=== PATIENT | male | born 1995 | race Two or more races ===

== ENCOUNTER 2020-12-09 04:34 | Emergency (ER) | payer OTHER ==
[~2020-12-09] VITALS: Ht 182.9 cm; Wt 90.9 kg
[2020-12-09 05:48] VITALS: BP 128/78
[2020-12-09] MEDS: PERTUSS(ACELL),DIPH,TET VAC/PF 0.5 ML SYRINGE IM. ONE ×2 (06:14→08:50)
== END 2020-12-09 10:43 | disposition home or self-care (01) ==
LOC: EMS 04:34
DX: S41.011A Laceration without foreign body of right shoulder, initial encounter (principal); W22.8XXA Striking against or struck by other objects, initial encounter; Y93.89 Activity, other specified; Y92.89 Other specified places as the place of occurrence of the external cause; Y99.8 Other external cause status
CPT/HCPCS: 12001; 90471; 90715; 99283